=== PATIENT | female | born 1955 | race Caucasian/White ===

== ENCOUNTER → 2018-07-28 | Outpatient (CLI) | payer MEDICARE ==
[~2018-07-28] MED LIST: AMPH20TA2 PO; ASP81CT PO; CHOL10003 PO; CLON0.5T3 PO; CLON1TAB36; CTLP20T PO; CYCL10TA9 PO; DIAZ10TA PO; DIAZ5TAB49; ESCT10T; EST.625T PO; EZET10TA5 PO; GABA300C PO; HYDR1TAB86 PO; LAMO100T69 PO; MIRT30TA6 PO; MRTZ15T; MULT1TAB63 PO; OLN2.5T; OMG1KC PO; PHN100C; PRM50SU PO; PROP20TA23; RSP.25T PO; RT-COMBINH IH; SMV20T PO
--- NOTE | 2018-07-28 12:55 | Diagnostic Imaging Report ---
INDICATION: Multiple falls in the last 2 weeks with pain on the lateral posterior aspect of the left knee. Time of exam 1:03 PM 3 views of the left knee were obtained. The alignment is normal. The joint spaces are well maintained. The articular surfaces are smooth. No fracture, dislocation or effusion is identified. IMPRESSION: No acute bony abnormality is detected. Dictated by: Dictated on workstation # [id number]
--- NOTE | 2018-07-28 15:17 | Diagnostic Imaging Report ---
PROCEDURE: US left lower extremity venous. TECHNIQUE: Multiple real-time grayscale images were obtained over the left lower extremity in various projections. Additional duplex Doppler and color Doppler images were also obtained. INDICATION: Left knee injury and left knee pain with unilateral left lower extremity swelling. There is no evidence of a left lower extremity DVT. The left lower extremity deep venous system shows normal compressibility with normal response to augmentation and Valsalva. No fluid collection or mass is seen. IMPRESSION: No evidence of left lower extremity DVT. Dictated by: Dictated on workstation # [id number]
== END ==
LOC: RAD 11:38
PROVIDERS: ATTEND Registered Nurse
DX: S89.92XA Unspecified injury of left lower leg, initial encounter (principal); W19.XXXA Unspecified fall, initial encounter
CPT/HCPCS: 73562

== ENCOUNTER → 2018-08-11 | Outpatient (CLI) | payer MEDICARE ==
--- NOTE | 2018-08-11 14:58 | Diagnostic Imaging Report ---
PROCEDURE: MRI left joint lower extremity without contrast. TECHNIQUE: Multiplanar, multisequence MR imaging of the left knee was performed without contrast. COMPARISON: Left knee radiographs of 07/28/2018. INDICATION: Knee pain after fall. FINDINGS: MENISCI Medial meniscus: Normal. Lateral meniscus: Normal. LIGAMENTS ACL: Intact. PCL: Intact. MCL: Intact. LCL: The lateral collateral ligamentous complex is intact. EXTENSOR MECHANISM The extensor mechanism is intact. CARTILAGE Medial compartment: Medial compartment articular cartilage is well preserved without focal high-grade chondromalacia. Lateral compartment: The lateral compartment articular cartilage is preserved without high-grade chondromalacia. Patellofemoral compartment: The patellofemoral articular cartilage is well preserved without high-grade chondromalacia. BONE There is a small rounded amorphous focus of bone marrow edema in the anterior aspect of the tibia just above the anterior tibial tuberosity. No macroscopic fracture line is present. SOFT TISSUE No knee effusion or Hanks's cyst. Subcutaneous T2 hyperintense edema-like signal in the prepatellar region. IMPRESSION: 1. No acute internal derangement. Specifically, there is no tear of the menisci, cruciate ligaments or collateral ligaments. 2. Small focus of bone contusion in the anterior aspect of the mid tibia just above the anterior tibial tuberosity. 3. Prepatellar subcutaneous edema and/or contusion. Dictated by: Dictated on workstation # [id number]
== END ==
LOC: RAD 13:02
PROVIDERS: ATTEND Nurse Practitioner
DX: S80.12XA Contusion of left lower leg, initial encounter (principal); W19.XXXA Unspecified fall, initial encounter
CPT/HCPCS: 73721

== ENCOUNTER → 2021-01-06 | Outpatient (CLI) | payer MEDICARE ==
--- NOTE | 2021-01-06 11:58 | Diagnostic Imaging Report ---
INDICATION: Postmenopausal. COMPARISON: None FINDINGS: The bone mineral density of hips and spine and femoral necks was measured. There are no prior studies for comparison. Total T score for the spine is -3.0. This does indicate osteoporosis. The total T score for the left hip is -1.5 and for the right hip -1.6. The T score for the left femoral neck is -2.2 and for the right femoral neck -1.7. All of these values fall within the range of osteopenia. AP Spine L1-L4: [BMD (g/cm2): 0.845] [T-Score: -3.0] [Z-Score: -1.5] [BMD Previous: na] [BMD % Change: na] LT Hip Neck: [BMD (g/cm2): 0.736] [T-Score: -2.2] [Z-Score: -0.8] LT Hip Total: [BMD (g/cm2):0.815] [T-Score:-1.5] [Z-Score: -0.4] [BMD Previous: na] [BMD % Change: na] RT Hip Neck: [BMD (g/cm2):0.804] [T-Score:-1.7] [Z-Score:-0.3] RT Hip Total: [BMD (g/cm2):0.810] [T-score:-1.6] [Z-Score:-0.5] [BMD Previous:na] [BMD % Change:na] *Indicates significant change from prior examination based on 95% confidence level. World Health Organization criteria for BMD interpretation classify patients as Normal (T-score at or above -1.0), Osteopenic (T-score between -1.0 and -2.5) or Osteoporotic (T-score at or below -2.5). LIMITATIONS AND MODIFICATION: None. FRACTURE RISK (FRAX SCORE): The ten year probability of (%): Major Osteoporotic Fracture: [11.9] Hip Fracture: [3.1] IMPRESSION: 1. There is osteopenia of the hips and femoral necks but there is osteoporosis of the spine. 2. 3. See below National Osteoporosis Foundation guidelines on when to potentially initiate pharmacologic therapy. Based on the National Osteoporosis Foundation Guidelines, pharmacologic treatment should be initiated in any of the following, unless clinical conditions suggest otherwise: * Any patient with prior fragility fracture of the hip or vertebrae. A spine fracture indicates 5X risk for subsequent spine fracture and 2X risk for subsequent hip fracture. * Osteoporosis (T-score <-2.5). * Postmenopausal women and men age 50 and older with low bone mass/osteopenia (T-score between -1.0 and -2.5) by DXA and 10-year major osteoporotic fracture greater than 20% or a 10-year probability of hip fracture greater than 3%. These fracture risks are supplied above in the FRAX score, if applicable. * Clinician judgement and/or patient preferences may indicate treatment for people with 10-year fracture probabilities above or below these levels. Dictated by: Dictated on workstation # [id number]
== END ==
LOC: RAD 09:39
PROVIDERS: ATTEND Pediatrics
DX: M81.0 Age-related osteoporosis without current pathological fracture (principal); Z78.0 Asymptomatic menopausal state
CPT/HCPCS: 77080

== ENCOUNTER → 2021-01-16 | Outpatient (CLI) | payer MEDICARE ==
--- NOTE | 2021-01-16 09:18 | Diagnostic Imaging Report ---
INDICATION: Routine screening. No prior mammograms are available for comparison. 2-D and 3-D bilateral screening mammography was performed with CAD. Both breasts are heterogeneously dense, limiting the sensitivity of mammography. No mass or malignant appearing microcalcifications are seen. Axillae are unremarkable. IMPRESSION: BI-RADS Category 1 No mammographic features suspicious for malignancy are identified. ACR BI-RADS Category 1: Negative. Result letter will be mailed to the patient. Note: At least 10% of breast cancer is not imaged by mammography. Dictated by: Dictated on workstation # [id number]
== END ==
LOC: RAD 08:30
PROVIDERS: ATTEND Pediatrics
DX: Z12.31 Encounter for screening mammogram for malignant neoplasm of breast (principal)
CPT/HCPCS: 77063; 77067

== ENCOUNTER 2022-04-04 00:29 | Emergency (ER) | payer MEDICARE ==
[~2022-04-04] VITALS: Ht 160 cm; Wt 59.4 kg
--- NOTE | 2022-04-04 01:41 | ED General ---
General Stated Complaint: PAIN,BRUISING,SWELLING Source of Information: Patient History of Present Illness Date Seen by Provider: Apr 04, 2022 Time Seen by Provider: 01:32 Initial Comments PT ARRIVES VIA POV FROM HOME PT FELL LAST Tuesday04/01/22 STATES SHE STOOD UP AND GOT DIZZY AND FELL AGAINST THE WASHER AND THEN FELL BACKWARDS AND LANDED ON HER BACK HAS HAD BILATERAL HIP PAIN AND LOW BACK PAIN SINCE THEN DID NOT HIT HER HEAD AT THAT TIME, AND NO NECK PAIN NO DIZZINESS SINCE THEN HAS MINOR ABRASION TO RIGHT MCNEIL FROM THAT INCIDENT. NO PAIN TO THAT AREA DID NOT SEEK CARE AT ANY TIME FOR THAT PROBLEM HAS NOT TAKEN ANYTHING FOR PAIN AT ANY TIME THOSE SYMPTOMS ARE NO DIFFERENT TONIGHT IN ANY WAY STATES SHE WAS ON HER WAY TO COME TO THE ER TONIGHT FOR THE ABOVE INJURY AND SHE WAS WALKING DOWN THE STEPS AND MISSED THE LAST STEP AND FELL FORWARD AND HIT HER FOREHEAD ON CONCRETE AND THEN SOMEHOW ENDED UP ON HER BACK OCCURRED AROUND MIDNIGHT TONIGHT C/O PAIN TO FOREHEAD, BUT NOT AN ACTUAL HEADACHE DID NOT BREAK HER GLASSES NO NECK PAIN NO VISION CHANGES NO DIZZINESS NO NAUSEA/VOMITING NO PARESTHESIAS OR MOTOR DEFICITS NO CHEST OR ABDOMINAL PAIN OR INJURY NO SHORTNESS OF BREATH. NO ARM OR LEG PAIN, OTHER THAN THE BILATERAL HIP PAIN FROM THE ABOVE INJURY. HAS MINOR ABRASIONS TO LEFT ELBOW AND LEFT KNEE. NO PAIN TO THOSE AREAS. NO PRIOR INJURIES TO HEAD, NECK, BACK, OR HIPS. STATES SHE HAS NOT HAD ANY BONE/JOINT PROBLEMS OR CHRONIC PAIN ISSUES HOWEVER, PER MED RECONCILIATION, PT PRESCRIBED CYCLOBENZAPRINE AND ULTRAM MONTHLY PT IS ALSO ON A MULTITUDE OF PSYCH MEDICATIONS AND OTHER SEDATING MEDICATIONS LAST TETANUS VACCINE IS UNKNOWN PT IS NOT ON ASPIRIN OR BLOOD THINNERS PCP: [facility] Allergies and Home Medications Allergies Coded Allergies: Codeine (Verified Allergy, Unknown, 01/13/06) Prochlorperazine (Verified Allergy, Unknown, 01/13/06) sumatriptan (Verified Allergy, Unknown, 01/14/06) Patient Home Medication List Aspirin (Aspirin 81 Mg Chew Tab) 81 Mg Chew, 81 MG PO HS, (Reported) Entered as Reported by: BLAKE PAGE on 04/05/11 1830 Cholecalciferol (Vitamin D) 1,000 Unit Tablet, 1,000 UNIT PO DAILY, (Reported) Entered as Reported by: BLAKE PAGE on 04/05/111829 Citalopram Hydrobromide (Celexa) 20 Mg Tablet, 20 MG PO DAILY, (Reported) Entered as Reported by: BLAKE PAGE on 04/05/111829 Clonazepam (Clonazepam 0.5 Mg) 0.5 Mg Tablet, 0.5 MG PO HS, (Reported) Entered as Reported by: BLAKE PAGE on 04/05/111829 Cyclobenzaprine Hcl (Cyclobenzaprine Hcl) 10 Mg Tablet, 10 MG PO Q8HR PRN, (Reported) Entered as Reported by: BLAKE PAGE on 04/05/111829 Diazepam (Valium) 10 Mg Tablet, 10 MG PO PRN, (Reported) Entered as Reported by: BLAKE PAGE on 04/05/111829 Estrogens,Conjugated (Premarin) 0.625 Mg Tablet, 0.625 MG PO DAILY, (Reported) Entered as Reported by: QUYEN DIEZ on 12/16/0630 Ezetimibe (Zetia) 10 Mg Tablet, 10 MG PO HS, (Reported) Entered as Reported by: BLAKE PAGE on 04/05/111829 Gabapentin (Neurontin) 300 Mg Capsule, 300 MG PO HS, (Reported) Entered as Reported by: BLAKE PAGE on 04/05/111829 Ipratropium/Albuterol Sulfate (Combivent Inhaler) 14.7 Gm Aer.w.adap, 2 PUFF IH Q6H PRN, (Reported) Entered as Reported by: KAREY LUJAN on 04/07/11936 Lamotrigine (Lamictal) 100 Mg Tablet, 100 MG PO BID, (Reported) Entered as Reported by: BLAKE PAGE on 04/05/111829 Mirtazapine (Mirtazapine 30 Mg) 30 Mg Tablet, 30 MG PO HS, (Reported) Entered as Reported by: BLAKE PAGE on 04/05/111829 Multivitamins (Vitamins (Multi-Vit)) 1 Ea Tablet, 1 TAB PO DAILY, (Reported) Entered as Reported by: QUYEN DIEZ on 12/16/0627 [place] [employer] 3 Polyunsat Fatty Acids (Fish Oil) 1,000 Mg Cap, 1,000 MG PO DAILY, (Reported) Entered as Reported by: BLAKE PAGE on 04/05/111829 Promethazine Hcl (Phenergan) 50 Mg Supp.rect, 50 MG PO Q6H PRN, (Reported) Entered as Reported by: BLAKE PAGE on 04/05/111829 Risperidone (Risperdal) 0.25 Mg Tablet, 0.25 MG PO HS, (Reported) Entered as Reported by: QUYEN DIEZ on 12/16/06 0031 Review of Systems Review of Systems Constitutional: no symptoms reported EENTM: see HPI Respiratory: no symptoms reported Cardiovascular: no symptoms reported Gastrointestinal: no symptoms reported Genitourinary: no symptoms reported Musculoskeletal: see HPI Skin: see HPI Psychiatric/Neurological: See HPI; Denies Numbness, Denies Paresthesia, Denies Seizure, Denies Tingling, Denies Tremors, Denies Weakness Hematologic/Lymphatic: No Symptoms Reported Immunological/Allergic: no symptoms reported Past Mbttprm-Zipxwg-Gocbcx Hx Patient Social History Tobacco Use?: Yes Tobacco type used: Cigarettes Smoking Status: Current Everyday Smoker Substance use?: Yes Substance type: Marijuana Past Medical History Surgeries: Yes Appendectomy, Gallbladder, Hysterectomy Respiratory: Yes Asthma, COPD Cardiac: Yes Hypertension Neurological: Yes (PSEUDOSEIZURES) Reproductive Disorders: Yes Female 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 -ETOH--DENIES USE -DRUGS--THC USE PAST SURGICAL HISTORY: -HYSTERECTOMY/BILATERAL SALPINGO-OOPHORECTOMY -LAPAROSCOPIC CHOLECYSTECTOMY -SMALL BOWEL RESECTION -LYSIS OF ADHESIONS -LIVER BIOPSY -RIGHT ELBOW ULNAR NERVE TRANSPOSITION WITH MEDIAL EPICONDYLE RELEASE -RIGHT ELBOW TENNIS ELBOW RELEASE -RIGHT SHOULDER SCOPES X 2 -SINUS SURGERY -ERCP WITH GALLSTONE REMOVAL AND SPHINCTEROTOMY -MULTIPLE LEFT HAND SURGERIES SECONDARY TO TRAUMA. Physical Exam Vital Signs Vital Signs - First Documented 04/04/22 01:43 Temp 36.8 Pulse 80 Resp 20 B/P (MAP) 137/91 (106) Pulse Ox 96 O2 Delivery Room Air Capillary Refill : Height, Weight, BMI Height: '" Weight: lbs. oz. kg; BMI Method: General Appearance: No Apparent Distress, WD/WN, Other (MOVES VERY SLOWLY) HEENT: PERRL/EOMI Neck: Full Range of Motion, Normal Inspection, Non Tender, Supple Respiratory: Chest Non Tender, Normal Breath Sounds, No Accessory Muscle Use, No Respiratory Distress Cardiovascular: Regular Rate, Rhythm, No Edema, No JVD, No Murmur, Normal Peripheral Pulses Gastrointestinal: Normal Bowel Sounds, No Organomegaly, No Pulsatile Mass, Non Tender, Soft Back: Other (DIFFUSE LOWER BACK TENDERNESS) Extremity: Normal Capillary Refill, No Calf Tenderness, No Pedal Edema, Other (BILATERAL HIP TENDERNESS. MINOR ABRASIONS TO LEFT ELBOW AND LEFT KNEE. OLDER/SCABBED ABRASION TO RIGHT MCNEIL. 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 ) Progress/Results/Core Measures Suspected Sepsis SIRS Temperature: Pulse: Respiratory Rate: Blood Pressure / Mean: Results/Orders My Orders Orders - SHELIA NEWELL DO Ct Head/Face/Cervical Wo (04/04/22 02:12) Ct Thoracic/Lumbar Spine Wo (04/04/22 02:12) Chest 1 View, Ap/Pa Only (04/04/22 02:12) Pelvis/Sav Hips 5> Views (04/04/22 02:12) Dipht,Pertuss(Acell),Tet Adult (Boostrix (04/04/22 02:15) Ketorolac Injection (Toradol Injection) (04/04/22 05:30) Orphenadrine Inj (Ed Only) (Norflex Inje (04/04/22 05:30) Medications Given in ED Current Medications Medications Dose Ordered Sig/Kavitha Route Start Time Stop Time Status Last Admin Dose Admin Diphtheria/ Tetanus/Acell Pertussis 0.5 ml ONCE ONCE IM 04/04/22 02:15 04/04/22 02:16 DC 04/04/22 02:31 0.5 ML Vital Signs/I&O 04/04/22 01:43 Temp 36.8 Pulse 80 Resp 20 B/P (MAP) 137/91 (106) Pulse Ox 96 O2 Delivery Room Air Capillary Refill : Progress Note : Progress Note NO DETERIORATION IN PT'S CONDITION DURING ER STAY MARKED DELAY IN OBTAINING CT AND THEN CT REPORTS. Diagnostic Imaging Comments CXR--NO ACUTE PROCESS, PENDING RADIOLOIGIST REVIEW PELVIS/BILATERAL HIPS--NO ACUTE PROCESS, PENDING RADIOLOGIST REVIEW CT HEAD/CERVICAL SPINE-- CT THORACIC/LUMBAR SPINE-- Reviewed: Reviewed by Me Departure Impression Primary Impression: Multiple falls Additional Impressions: Minor head injury without loss of consciousness Exacerbation of chronic back pain AGE INDETERMINATE T11 COMPRESSION FRACTURE Abrasions of multiple sites DEGENERATIVE CHAGES OF SPINE Disposition: HOME, SELF-CARE Condition: Stable Departure-Patient Inst. Decision time for Depature: 05:20 Referrals: [facility] [place] [facility] [place] Primary Care Physician REBECCA BROCK MD (Family) Primary Care Physician Patient Instructions: CHRONIC PAIN, Minor Head Injury, Adult ED, Preventing Falls ED, Vertebral Compression Fracture (DC) Add. Discharge Instructions: TAKE YOUR HOME MEDICATIONS PRESCRIBED, INCLUDING YOUR ULTRAM AND FLEXERIL FOR YOUR CHRONIC BACK PAIN IBUPROFEN 800 MG 4 TIMES A DAY FOR PAIN FOLLOW UP WITH YOUR DR IN 5-7 DAYS FOR FURTHER CARE SHELIA NEWELL DO Apr 04, 2022 01:41
[2022-04-04] MEDS ORDERED: TETANUS,DIPTH,PERTUSS P/F (BOOSTRIX) 0.5 ML VIAL IM ONE (02:15)
[2022-04-04] MEDS ORDERED: KETOROLAC 60 MG/2 ML VIAL IM ONE (05:30)
[2022-04-04] MEDS ORDERED: ORPHENADRINE 60 MG/2 ML (NORFLEX) AMP (ED ONLY) IM ONE (05:30)
[2022-04-04 05:39] VITALS: BP 123/73
--- NOTE | 2022-04-04 06:09 | Diagnostic Imaging Report ---
PROCEDURE: CT thoracic and lumbar spine without contrast. TECHNIQUE: Multiple contiguous axial images were obtained through the thoracic and lumbar spine without the use of intravenous contrast. Sagittal and coronal reformations were then performed. All CT scans use one or more of the following dose optimizing techniques: automated exposure control, MA and/or KvP adjustment based on a patient size and exam type, or iterative reconstruction. INDICATION: Back pain from trauma. COMPARISON: None available. FINDINGS: Thoracic spine: Normal kyphosis thoracic spine. There is a chronic Schmorl's node involving the superior endplate of T11. No acute fracture within the thoracic spine. The visualized posterior ribs are intact. No paravertebral hematoma. There is a small amount of dependent atelectasis within the visualized lungs. Lumbar spine: No acute fracture or traumatic malalignment. Degenerative disc disease is present at L4-L5 and L5-S1, but there is no high-grade spinal canal stenosis. No sacral fracture. There are few punctate nonobstructing renal stones. SI joints are normal in alignment. IMPRESSION: 1. No acute fracture in the thoracic or lumbar spine. 2. The superior endplate compression at T11 is due to a chronic Schmorl's node. 3. No significant change from preliminary report that would alter patient management. Dictated by: Dictated on workstation # [id number]
--- NOTE | 2022-04-04 06:12 | Diagnostic Imaging Report ---
PROCEDURE: CT head, face, and cervical spine without contrast. TECHNIQUE: Multiple contiguous axial images were obtained through the head, neck, and facial bones without the use of intravenous contrast. Sagittal and coronal reformations through the cervical spine and facial bones were also performed. Auto Exposure Controls were utilized during the CT exam to meet ALARA standards for radiation dose reduction. INDICATION: Head, face and back injury, trauma from fall. COMPARISON: None available. FINDINGS: Head: No intracranial hyperdense hemorrhage or space-occupying mass. No hydrocephalus or midline shift. Angulo-white matter differentiation is well-preserved. Basilar cisterns are widely patent. No skull fracture. Paranasal sinuses are clear with prior surgical changes of antrectomy and ethmoidectomies. Mastoid air cells are clear. Face: There is no acute fracture in the nasal bones, osseous nasal septum or anterior nasal spine. The orbits are intact. No fracture in the zygomatic arches or maxillary sinus white. Pterygoid plates are intact. The temporomandibular joints are normal in alignment. No acute mandibular fracture. Patient is edentulous. The globes are symmetric without traumatic lens dislocation. No intraconal hemorrhage. Cervical spine: Normal alignment of the cervical spine. No acute fracture or traumatic malalignment. No high-grade spinal canal stenosis. Airway is widely patent and there is no abnormal wall thickening. Thyroid is normal. Lung apices are clear. IMPRESSION: 1. No acute intracranial hemorrhage or skull fracture. 2. No fracture of the midface or mandible. 3. No fracture or malalignment in the cervical spine. 4. Findings are in agreement with the preliminary report. Dictated by: Dictated on workstation # [id number]
--- NOTE | 2022-04-04 06:45 | Diagnostic Imaging Report ---
INDICATION: Fall. TECHNIQUE: An AP pelvis and two-views of the bilateral hips were performed. FINDINGS: No displacement of the midline air containing rectal shadow. No symphyseal or SI joint diastasis. The femoral heads are directed into the acetabula. There are arthritic changes to the bilateral hips. No fracture or articular collapse. No bony avulsion. IMPRESSION: No acute or post traumatic sequelae identified at AP pelvis and two-view bilateral hips. Dictated by: Dictated on workstation # [id number]
--- NOTE | 2022-04-04 06:46 | Diagnostic Imaging Report ---
INDICATION: Fall, pain. FINDINGS: The lungs are clear. No effusion or pneumothorax. The cardiomediastinal and hilar contours are normal. The diaphragms are smooth. No free air beneath the diaphragms. No displaced chest fracture deformity. IMPRESSION: No acute appearing abnormality. Dictated by: Dictated on workstation # [id number]
== END 2022-04-04 05:38 | disposition home or self-care (01) ==
LOC: EDUNIT# 00:29 → ER 00:33
DX: S22.089A Unspecified fracture of T11-T12 vertebra, initial encounter for closed fracture (principal); S50.312A Abrasion of left elbow, initial encounter; S80.212A Abrasion, left knee, initial encounter; S80.811A Abrasion, right lower leg, initial encounter; S09.90XA Unspecified injury of head, initial encounter; M47.819 Spondylosis without myelopathy or radiculopathy, site unspecified; M25.552 Pain in left hip; M25.551 Pain in right hip; F17.210 Nicotine dependence, cigarettes, uncomplicated; W18.30XA Fall on same level, unspecified, initial encounter
CPT/HCPCS: 70450; 70486; 71045; 72125; 72128; 72131; 73523; 90715

== ENCOUNTER 2022-11-16 10:54 | Day surgery (SDC) | payer MEDICARE, OTHER ==
[~2022-11-16] VITALS: Ht 160 cm; Wt 71.4 kg
[2022-11-16] VITALS (12 sets, daily range): BP systolic 94–132; BP diastolic 52–81
[2022-11-16] MEDS ORDERED: NS IV 1000 ML 1,000 ML IV SCH ×2 (11:00→13:15)
[2022-11-16] MEDS ORDERED: LIDOCAINE 1% INJ 20 ML VIAL ONE (11:05)
[2022-11-16] MEDS ORDERED: HEParin (CATH LAB) 2,000 ML IV ONE (11:05)
[2022-11-16] MEDS ORDERED: NS IV 1000 ML 1,000 ML ONE (11:05)
[2022-11-16 11:47] LABS: HEMATOCRIT 41 % (35-52); HEMOGLOBIN 13.4 g/dL (11.5-16.0); MEAN CORPUSCULAR HEMOGLOBIN 30 pg (25-34); MEAN CORPUSCULAR HGB CONC 33 g/dL (32-36); MEAN CORPUSCULAR VOLUME 93 fL (80-99); MEAN PLATELET VOLUME 10.4 fL (9.0-12.2); PLATELET COUNT 273 10^3/uL (130-400); WHITE BLOOD COUNT 5.5 10^3/uL (4.3-11.0)
[2022-11-16] MEDS ORDERED: FLUO40CA12 PO (12:01)
[2022-11-16] MEDS ORDERED: MTP25TSR PO (12:02)
[2022-11-16 12:03] LABS: PROTHROMBIN TIME PATIENT 13.5 SEC (12.2-14.7)
[2022-11-16] MEDS ORDERED: TRAZ-227 PO (12:03)
[2022-11-16] MEDS ORDERED: ARIP5TAB12 PO (12:04)
[2022-11-16] MEDS ORDERED: PRAZ1POW3 MC (12:05)
[2022-11-16] MEDS ORDERED: GBPN600T PO (12:07)
[2022-11-16] MEDS ORDERED: TRM50T PO (12:08)
[2022-11-16] MEDS ORDERED: ROSU40TA PO (12:10)
[2022-11-16 12:11] LABS: ALBUMIN 4.1 GM/DL (3.2-4.5); BILIRUBIN,TOTAL 0.6 MG/DL (0.1-1.0); CALCIUM 9.4 MG/DL (8.5-10.1); CREATININE SERUM 0.76 MG/DL (0.60-1.30); POTASSIUM 3.7 MMOL/L (3.6-5.0); TOTAL PROTEIN 7.3 GM/DL (6.4-8.2)
[2022-11-16] MEDS ORDERED: ALEN70TA80 PO (12:12)
[2022-11-16] MEDS ORDERED: fentaNYL INJ 100 MCG/2 ML AMP ONE (12:19)
[2022-11-16] MEDS ORDERED: MIDAZOLAM 5 MG/5 ML (VERSED) VIAL ONE (12:20)
--- NOTE | 2022-11-16 13:13 | Cardiac Procedure Note-CS/ASA ---
Pre-Procedure Note Pre-Op Procedure Note Date of Available H&P: Nov 15, 2022 Date H&P Reviewed: Nov 16, 2022 Time H&P Reviewed: 12:00 History & Physical: H&P Reviewed, No changes noted Conscious Sedation Pre-Proced ASA Score 3 For ASA 3 and 4: Consider anesthesia and medical clearance. Also, for patients with a history of failed moderate sedation consider anesthesia. Airway Lungs Heart ASA score ASA 1: a normal healthy patient ASA 2: a patient with a mild systemic disease (mid diabetes, controlled hypertension, obesity ASA 3: a patient with a severe systemic disease that limits activity (angina, COPD, prior Myocardial infarction) ASA 4: a patient with an incapacitating disease that is a constant threat to life (CHF, renal failure) ASA 5: a moribund patient not expected to survive 24 hrs. (ruptured aneurysm) ASA 6: a declared brain- patient whose organs are being harvested. For emergent operations, add the letter E after the classification Mallampati Classification Grade 2 Sedation Plan Analgesia, Amnesia, Plan communicated to team members The patient is an appropriate candidate to undergo the planned procedure, sedation, and anesthesia. The patient immediately re-assessed prior to indication. UMBERTO ACUNA MD FACP [facility] Nov 16, 2022 13:13
[2022-11-16] MEDS ORDERED: PATIENT MAY USE OWN MEDS, ALL PO SCH (13:15)
--- NOTE | 2022-11-16 13:17 | Discharge Inst-Post CATH ---
Discharge Inst-CATH/EP Post Cardiac Cath/EP D/C Inst Follow Up/Plan F/u with Dr Beasley in one month ACTIVITY * Go Home directly and rest. * Limit activity of the leg (or wrist if it was used) for 7 days including aerobics, swimming, jogging, bicycling, etc. * Restrict stair-climbing for 7 days if possible, if not, climb up with your non-cath leg, then bring together on the same step. * Avoid lifting, pushing, pulling or excessive movement of the affected e xtremity for 7 days. * Customary sexual activity may be resumed after 2 days-use caution not to use a position that strains or causes pain to the affected extremity. * No driving for 24 hours. * NO SMOKING. * Avoid straining for bowel movements for 7 days. * Gentle walking on level ground is allowed. * Returning to work will depend on the type of procedure and the results. Your doctor will discuss this with you. CALL YOUR DOCTOR FOR ANY OF THE FOLLOWING: *If bleeding from the puncture site occurs- Apply gentle pressure to site with clean cloth and call your doctor or EMS. * If a knot or lump forms under the skin, increases in size, or causes pain. * If bruising appears to be worsening or moving further down your leg instead of disappearing. * Temperature above 101 F. CARE OF YOUR GROIN INCISION; * Bruising or purple discoloration of the skin near the puncture site is common. * You may shower only, no bathtub bathing for 5 days. Be careful to avoid slipping as your leg may feel stiff. * If a closure device was used on your femoral artery, please see the attached guide regarding care of the device and your leg. * Leave dressing on FOR 24 hours. CARE OF YOUR WRIST INCISION; * Bruising or purple discoloration of the skin near the puncture site is common. * You may shower. * DO NOT submerge wrist. * Leave dressing on FOR 24 hours. UMBERTO BEASLEY MD FACP [facility] Nov 16, 2022 13:17
--- NOTE | 2022-11-16 13:17 | Discharge Inst-Cardiology ---
Discharge Inst-Cardiac Discharge Medications Continued Medications: Alendronate Sodium (Alendronate Sodium) 70 Mg Tablet 70 MG PO WEEK, TAB Aripiprazole (Abilify) 5 Mg Tablet 5 MG PO DAILY, TAB Aspirin (Aspirin 81 Mg Chew Tab) 81 Mg Chew 81 MG PO HS Cholecalciferol (Vitamin D) 1,000 Unit Tablet 1000 UNIT PO DAILY Fluoxetine HCl (Prozac) 40 Mg Capsule 40 MG PO BID, CAP Gabapentin (Gabapentin) 600 Mg Tablet 600 MG PO TID, TAB Ipratropium/Albuterol Sulfate (Combivent Inhaler) 14.7 Gm Aer.w.adap 2 PUFF IH Q6H PRN Lamotrigine (Lamictal) 100 Mg Tablet 100 MG PO BID Metoprolol Succinate (Metoprolol Succinate) 25 Mg Tab.er.24h 25 MG PO DAILY, TAB Multivitamins (Vitamins (Multi-Vit)) 1 Ea Tablet 1 TAB PO DAILY, 0 Refills Prazosin HCl (Prazosin HCl) 1 Gm Powder 1 GM MC HS, EA Rosuvastatin Calcium (Crestor) 40 Mg Tablet 40 MG PO DAILY, TAB Tramadol HCl (Tramadol HCl) 50 Mg Tablet 50 MG PO BID PRN PRN for PAIN-BREAKTHROUGH, TAB Trazodone HCl (Trazodone HCl) 100 Mg Tablet 200 MG PO HS, TAB UMBERTO ACUNA MD FACP [facility] Nov 16, 2022 13:17
--- NOTE | 2022-11-16 16:49 | CARDIAC CATHETERIZATION ---
DATE OF SERVICE: 11/16/2022 CARDIAC CATHETERIZATION REPORT The patient is a 67-year-old lady with coronary artery disease. Risk factors, he has been experiencing chest discomfort that is suggestive of new onset of angina. Cardiac catheterization was carried out today after having obtained an informed consent. DESCRIPTION OF PROCEDURE: She was brought to the cardiac catheterization laboratory in a fasting state. Right groin was prepared and draped in the usual sterile fashion. 1% lidocaine was used for local anesthesia. Modified Seldinger technique was used to advance a 5-Salvadorean sheath into the right femoral artery, 5-Salvadorean JL4 catheter, left coronary angiography, 5-Salvadorean JR4 catheter was used for right coronary angiography, 5-Salvadorean pigtail catheter was used for left heart catheterization, left ventricular angiography. The catheter was pulled back and removed. Angiography of the right femoral artery was carried out through the sheath. The site of sheath insertion did not appear suitable for device closure. Manual pressure was used to achieve hemostasis after sheath removal. HEMODYNAMICS: Left ventricular end diastolic pressure, following coronary angiography was 15 mmHg. There is no significant pressure gradient on pullback across the aortic valve. Ascending aortic pressure is 103/59 with a mean of 78 mmHg. CORONARY ANGIOGRAPHY: Left main coronary artery is free of significant disease. Left anterior descending artery has mild plaques with stenosis of 20-30% throughout its course. Left circumflex artery is nondominant and does not exhibit significant disease. Right coronary artery is dominant and does not exhibit significant disease. LEFT VENTRICULAR ANGIOGRAPHY: Left ventricular angiography was carried out in the right anterior oblique projection. Global left ventricular systolic function normal. No regional wall motion abnormality was seen. Left ventricular ejection fraction is estimated to be 55-60% conclusions. CONCLUSION: 1. Mild coronary artery disease. 2. Normal global left ventricular systolic function with ejection fraction approximately 55-60%. 3. Left ventricular end-diastolic pressure 15 mmHg. DISCUSSION AND RECOMMENDATIONS: Based on the results of the study, it appears appropriate to continue a conservative approach. Current regimen is being continued. Risk factor modification is advised. Outpatient followup is advised. Job ID: [id number] DocumentID: [id number] Dictated Date: 11/16/2022 13:26:23 Vb Net Developer Date: 11/16/2022 16:47:00 Dictated By: UMBERTO ACUNA MD; MA; FACP; FACC;
[2022-11-16] MEDS ORDERED: oxyCODONE/APAP 5/325MG (PERCOCET 5) TABLET PO NR (19:00)
[2022-11-16] MEDS: NS IV 1000 ML 1,000 ML IV SCH (19:47)
[2022-11-17] MEDS: NS IV 1000 ML 1,000 ML IV SCH ×2 (02:47→09:38)
[2022-11-17 03:50] VITALS: BP 96/53
[2022-11-17 04:00] VITALS: BP 101/60
--- NOTE | 2022-11-17 07:52 | Progress Note - Cardiology ---
Cardiology SOAP Progress Note Subjective: Lying in bed C/O gen discomfort C/O dizziness which is unchanged from prior to cardiac cath. She states this has been going on for months and is no different. She reports she took her home medications last night Objective: I&O/Vital Signs 11/16/22 11/17/22 11/17/22 11/17/22 23:42 01:00 03:50 04:00 Temp 36.4 36.2 Pulse 58 58 77 59 Resp 13 23 26 B/P (MAP) 94/54 (67) 96/53 (67) 101/60 (74) Pulse Ox 94 97 97 O2 Delivery Room Air Room Air Room Air 11/17/22 11/17/22 11/17/22 06:58 06:58 07:56 Temp 36.2 Pulse 60 60 62 Resp 17 B/P (MAP) 110/59 (76) Pulse Ox 97 O2 Delivery Room Air 11/17/22 00:00 Intake Total 1266 ml Output Total 0 ml Balance 1266 ml Side: right Groin site without hematoma: Yes Condition: DP/PT pulses palpable, extremity w/d/p Bruising: moderated bruising Constitutional: AAO x 3, well-developed Respiratory: No accessory muscle use, No respiratory distress; chest expansion is symmetric, chest is bilaterally symmetric, lungs clear to auscultation Cardiovascular: regular rate-rhythm; No JVD; S1 and S2 Gastrointestional: No tender; soft, round, audible bowel sounds Neurologic/Psychiatric: grossly intact (moves all extremities) Skin: No rash on exposed areas, No ulcerations on exposed areas Results/Procedures: Labs Laboratory Tests 11/16/22 11:37: White Blood Count 5.5, Red Blood Count 4.45, Hemoglobin 13.4, Hematocrit 41, Mean Corpuscular Volume 93, Mean Corpuscular Hemoglobin 30, Mean Corpuscular Hemoglobin Concent 33, Red Cell Distribution Width 13.3, Platelet Count 273, Mean Platelet Volume 10.4, Prothrombin Time 13.5, INR Comment 1.0, Activated Partial Thromboplast Time 27, Sodium Level 142, Potassium Level 3.7, Chloride Level 106, Carbon Dioxide Level 25, Anion Gap 11, Blood Urea Nitrogen 10, Creatinine 0.76, Estimat Glomerular Filtration Rate 87, BUN/Creatinine Ratio 13, Glucose Level 112H, Calcium Level 9.4, Corrected Calcium 9.3, Total Bilirubin 0.6, Aspartate Amino Transf (AST/SGOT) 634H, Alanine Aminotransferase (ALT/SGPT) 811H, Alkaline Phosphatase 177H, Total Protein 7.3, Albumin 4.1, Triglycerides Level 156H, Cholesterol Level 132, LDL Cholesterol Direct 39, VLDL Cholesterol 31, HDL Cholesterol 50 11/17/22 08:30: White Blood Count 8.1, Red Blood Count 3.55L, Hemoglobin 10.7#L, Hematocrit 33L, Mean Corpuscular Volume 94, Mean Corpuscular Hemoglobin 30, Mean Corpuscular Hemoglobin Concent 32, Red Cell Distribution Width 13.5, Platelet Count 192, Mean Platelet Volume 10.5, Sodium Level 140, Potassium Level 3.7, Chloride Level 112H, Carbon Dioxide Level 20L, Anion Gap 8, Blood Urea Nitrogen 9, Creatinine 0.71, Estimat Glomerular Filtration Rate 94, BUN/Creatinine Ratio 13, Glucose Level 163H, Calcium Level 8.1L, Corrected Calcium 8.7, Total Bilirubin 0.4, Aspartate Amino Transf (AST/SGOT) 170H, Alanine Aminotransferase (ALT/SGPT) 424H , Alkaline Phosphatase 130, Total Protein 5.5L, Albumin 3.2 Microbiology 11/16/22 MRSA Screen - Final, Complete MRSA not isolated Procedures NAME: RAMAN CONSTANTINO [facility] REC#: [id number] PT STATUS: [facility] : 1955 PHYSICIAN: BHUMIKA NUÑEZ MD ADMIT DATE: 11/16/22/[facility] Draft Date of Exam:11/17/22 RIGHT LOW EXT [id number] INDICATION: Status post cardiac catheter in the right groin. Patient complains of right groin pain. Grayscale, color-flow duplex Doppler evaluation of the right groin was performed. No hematoma is seen. No pseudoaneurysm or AV fistula is detected. A right common femoral artery and vein are patent. The proximal superficial femoral artery and vein are patent. IMPRESSION: Unremarkable right groin ultrasound. Dictated on workstation # [id number] Dict: 11/17/22904 Trans: 11/17/22 0927 CV [id number] Interpreted by: PRATEEK BIRD MD Electronically signed by: A/P: Assessment: Non-cardiac dizziness of undetermined etiology Elevated liver enzymes of undetermined etiology CAD - Cardiac cath of 11-16-22: Mild coronary artery disease. Normal global left ventricular systolic function with ejection fraction approximately 55-60%. Left ventricular end-diastolic pressure 15 mmHg. Quit smoking in May 2022 HLD HTN Family h/o premature CAD (mother had [place] at age 60) PTSD Bi-polar disorder Chronic pain syndrome Recent falls due to dizziness (no syncope) Temporal artery biopsy by Dr Messina in [place], [place] on Nov 08, 2022 (results awaited) Plan: C/O gen pain of undetermined etiology and dizziness - right groin arterial doppler shows no evidence of bleed or fistula Chronic dizziness of undetermined etiology - suspect r/t multi-drug tx (Trazadone, Lamictal, Gabapenin, Prozac, Tramadol, Flexeril and Hydrocodone) - will consult medical services for non-cardiac dizziness - somewhat lowis BP - stop Toprol Elevated liver enzymes of undetermined etiology - medical services consulted Monitor lab NADIA GASPAR Nov 17, 2022 07:52
[2022-11-17 07:56] VITALS: BP 110/59
[2022-11-17 08:43] LABS: MEAN CORPUSCULAR HEMOGLOBIN 30 pg (25-34); MEAN CORPUSCULAR HGB CONC 32 g/dL (32-36); MEAN CORPUSCULAR VOLUME 94 fL (80-99); MEAN PLATELET VOLUME 10.5 fL (9.0-12.2); WHITE BLOOD COUNT 8.1 10^3/uL (4.3-11.0)
[2022-11-17 08:49] LABS: HEMATOCRIT 33 % (35-52); HEMOGLOBIN 10.7 g/dL (11.5-16.0); PLATELET COUNT 192 10^3/uL (130-400)
[2022-11-17 08:52] LABS: ALBUMIN 3.2 GM/DL (3.2-4.5)
[2022-11-17 08:53] LABS: POTASSIUM 3.7 MMOL/L (3.6-5.0)
[2022-11-17 08:54] LABS: CALCIUM 8.1 MG/DL (8.5-10.1)
[2022-11-17 08:55] LABS: TOTAL PROTEIN 5.5 GM/DL (6.4-8.2)
[2022-11-17 08:57] LABS: BILIRUBIN,TOTAL 0.4 MG/DL (0.1-1.0)
[2022-11-17 08:59] LABS: CREATININE SERUM 0.71 MG/DL (0.60-1.30)
--- NOTE | 2022-11-17 09:29 | Diagnostic Imaging Report ---
INDICATION: Status post cardiac catheter in the right groin. Patient complains of right groin pain. Grayscale, color-flow duplex Doppler evaluation of the right groin was performed. No hematoma is seen. No pseudoaneurysm or AV fistula is detected. A right common femoral artery and vein are patent. The proximal superficial femoral artery and vein are patent. IMPRESSION: Unremarkable right groin ultrasound. Dictated by: Dictated on workstation # [id number]
--- NOTE | 2022-11-17 10:55 | Consultation - Hospitalist ---
HPI History of Present Illness: HPI/Chief Complaint CC: Dizziness HPI: This is a 67yoWF clinic patient of [facility] who has a h/o mental illness and chronic dizziness who is s/p cardiac cath to evaluate vague chest pain and it was normal. Dr Beasley consulted me for dizziness which was causing a possible delay in DC home. Apparently the dizziness has been present for 1 year and has been helped with Meclizine. Upon review of her labs and other diagnostic report the decision was made to start Meclizine and consult PT to get her up out of bed and give her exercises to use at home and DC home. Source: patient Exam Limitations: no limitations Date Seen 11/17/22 Attending Physician [facility] PCP Admitting Physician: Attending Physician: Jenae Beasley MD Facp Fac Ccds Referring Physician Date of Admission Home Medications & Allergies Home Medications Reviewed patient Home Medication Reconciliation performed by pharmacy medication reconciliations water quality technician and/or nursing. Patients Allergies have been reviewed. Allergies Allergies Coded Allergies codeine (Verified Allergy, Unknown, 01/13/06) prochlorperazine (Verified Allergy, Unknown, 01/13/06) sumatriptan (Verified Allergy, Unknown, 01/14/06) Past Hahiymt-Fhuerc-Ictqsj Hx Patient Social History Marrital Status: single Employed/Student: retired Tobacco Use?: No Smoking Status: Former Smoker Smokeless Tobacco Frequency: Never a User Use of E-Cig and/or Vaping dev: No Substance use?: No Alcohol Use?: No Pt feels they are or have been: No Immunizations Up To Date Date of Influenza Vaccine: Sep 28, 2022 Tetanus Booster (TDap): Unknown Current Status status: No status: No Advance Directives: No Communicates: Verbally Primary Language: [place] Preferred Spoken Language: [place] Is interpretation needed?: No Sensory deficits: Vision impairment Implanted or Applied Medical D: None Past Medical History Surgeries: Appendectomy, Gallbladder, Orthopedic, Tonsillectomy Asthma, COPD Currently Using CPAP: No Currently Using BIPAP: No High Cholesterol 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 -ETOH--DENIES USE -DRUGS--THC USE PAST SURGICAL HISTORY: -HYSTERECTOMY/BILATERAL SALPINGO-OOPHORECTOMY -LAPAROSCOPIC CHOLECYSTECTOMY -SMALL BOWEL RESECTION -LYSIS OF ADHESIONS -LIVER BIOPSY -RIGHT ELBOW ULNAR NERVE TRANSPOSITION WITH MEDIAL EPICONDYLE RELEASE -RIGHT ELBOW TENNIS ELBOW RELEASE -RIGHT SHOULDER SCOPES X 2 -SINUS SURGERY -ERCP WITH GALLSTONE REMOVAL AND SPHINCTEROTOMY -MULTIPLE LEFT HAND SURGERIES SECONDARY TO TRAUMA. Review of Systems Constitutional: see HPI, malaise, weakness Cardiovascular: chest pain Physical Exam Physical Exam Vital Signs Vital Signs - First Documented 11/16/22 11/16/22 11/17/22 11:27 14:15 08:00 Temp 36.6 Pulse 66 Resp 18 B/P (MAP) 131/61 (84) Pulse Ox 98 O2 Delivery Room Air O2 Flow Rate 0.00 Capillary Refill : Less Than 3 Seconds Height, Weight, BMI Height: '" Weight: lbs. oz. kg; 27.89 BMI Method: General Appearance: No Apparent Distress, WD/WN Eyes: Bilateral Eye Normal Inspection, Bilateral Eye PERRL HEENT: PERRL/EOMI, TMs Normal, Normal ENT Inspection, Pharynx Normal Neck: Full Range of Motion, Normal Inspection, Non Tender, Supple, Carotid Bruit Respiratory: Chest Non Tender, Lungs Clear, Normal Breath Sounds, No Accessory Muscle Use, No Respiratory Distress Cardiovascular: Regular Rate, Rhythm, No Edema, No Gallop, No JVD, No Murmur, Normal Peripheral Pulses Gastrointestinal: Normal Bowel Sounds, No Organomegaly, No Pulsatile Mass, Non Tender, Soft Back: Normal Inspection, No CVA Tenderness, No Vertebral Tenderness Extremity: Normal Capillary Refill, Normal Inspection, Normal Range of Motion, Non Tender, No Calf Tenderness, No Pedal Edema Neurologic/Psychiatric: Alert, Oriented x3, No Motor/Sensory Deficits, dental officer II- XII Norm as Tested, Depressed Affect Skin: Normal Color, Warm/Dry Lymphatic: No Adenopathy Results Results/Procedures Labs Laboratory Tests 11/16/22 11:37 11/17/22 08:30 Patient resulted labs reviewed. Assessment/Plan Assessment and Plan Assess & Plan/Chief Complaint Assessment: Chest pain with normal cath Chronic dizziness- giving Meclizine and initiating PT Mental illness Plan: Monitor closely Meclizine DC home after PT MANPREET FERNANDEZ DO Nov 17, 2022 10:55
[2022-11-17] MEDS ORDERED: ALBUTEROL SULFATE IH PRN (11:00)
[2022-11-17] MEDS ORDERED: [UNRECOGNIZED DRUG - OTHER] IH PRN (11:00)
[2022-11-17] MEDS ORDERED: IPRATROPIUM IH PRN (11:00)
[2022-11-17] MEDS ORDERED: MECLIZINE 25 MG (ANTIVERT) TAB PO NR (11:00)
[2022-11-17] MEDS ORDERED: MECLIZINE 25 MG (ANTIVERT) TAB PO PRN (11:00)
[2022-11-17] MEDS ORDERED: NON-FORMULARY MEDICATION 1 EA EA (Alendronate Sodium 70 MG) PO SCH (11:00)
[2022-11-17 11:46] VITALS: BP 107/55
--- NOTE | 2022-11-17 11:48 | Physical Therapy Evaluation ---
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 4-Pobtmbikzw-ecqncsa completes the activity by him/herself with no assistance from a helper. 5-Set-up or Clean-up Assistance-helper sets up or cleans up; patient completes activity. Yantis assists only prior to or following the activity. 4-Supervision or Touching Assistance-helper provides verbal cues and/or touching/steadying and/or contact guard assistance as patient completes activity. Assistance may be provided throughout the activity or intermittently. 3-Partial/Moderate Assistance-helper does LESS THAN HALF the effort. Yantis li fts, holds or supports trunk or limbs, but provides less than half the effort. 2-Substantial/Maximal Assistance-helper does MORE THAN HALF the effort. Yantis lifts or holds trunk or limbs and provides more than half the effort. 3-Uwoghytvl-oenert does ALL the effort. Patient does none of the effort to complete the activity. Or, the assistance of 2 or more helpers is required for the patient to complete the activity. If activity was not attempted, code reason: 7-Patient Refused. 9-Not Applicable-not attempted and the patient did not perform the activity before the current illness, exacerbation or injury. 10-Not Attempted due to Environmental Limitations-(lack of equipment, weather restraints, etc.). 88-Not Attempted due to Medical Conditions or Safety Concerns. Bed Mobility: 6 Transfers (B,C,W/C): 6 Gait: 6 Stairs: 6 Indoor Mobility (Ambulation): Independent Stairs: Independent patient does report frequent falls PT Evaluation-Current Subjective Patient in bed pre tx, agrees to PT, has unrated low back pain. Pt/Family Goals to be independent at home Objective Patient Orientation: Person, Place, Situation Attachments: IV ROM/Strength ROM Lower Extremities WNL Strength Lower Extremities grossly 4/5 BLE Sensory Vision: Functional Hearing: Functional Sensation Right Lower Extremit: Intact Sensation Left Lower Extremity: Intact Transfers Roll Left to Right (QC): 4 Sit to Lying (QC): 4 Lying to Sitting/Side of Bed(Q: 4 Sit to Stand (QC): 4 SBA for supine to sit, CGA for sit to stand Gait Walk 10 feet (QC): 3 Walk 50 ft with 2 Turns(QC): 3 Walk 150 ft (QC): 3 Distance: 150' Gait Assistive Device: FWW Comments/Gait Description Gait was slow, had 3 LOB that required assist from therapist, tends to walk with eyes closed. Balance Sitting Static: Normal Sitting Dynamic: Normal Standing Static: Poor Standing Dynamic: Poor Treatment BLE supine exercises x20 (AP, HS) Assessment/Needs Patient in bed post tx with nurse call, phone, tray, all needs met. Patient has impaired mobility and balance. She had several LOB during ambulation with therapy and nurse reports LOB with them too. Rehab Potential: Fair PT Digital Marketing Coordinator Goals Prison Goals PT Digital Marketing Coordinator Goals Time Frame: Nov 24, 2022 Roll Left & Right (QC): 6 Sit to Lying (QC): 6 Lying-Sitting on Side/Bed(QC): 6 Sit to Stand (QC): 4 (SBA) Chair/Bpk-cl-Osing Xfer(QC): 4 (SBA) Walk 10 feet (QC): 4 (SBA) Walk 50ft with 2 Turns (QC): 4 (SBA) Walk 150 ft (QC): 4 (SBA) PT Plan Problem List Problem List: Activity Tolerance, Functional Strength, Safety, Balance, Gait, Transfer, Bed Mobility, ROM Treatment/Plan Treatment Plan: Continue Plan of Care Treatment Plan: Bed Mobility, Education, Functional Activity Gianna, Functional Strength, Gait, Safety, Therapeutic Exercise, Transfers Treatment Duration: Nov 24, 2022 Frequency: 6 times per week Estimated Hrs Per Day: .25 hour per day Patient and/or Family Agrees t: Yes Safety Risks/Education Patient Education: Gait Training, Transfer Techniques, Correct Positioning, Safety Issues Teaching Recipient: Patient Teaching Methods: Demonstration, Discussion Response to Teaching: Reinforcement Needed Discharge Recommendations Plan Patient will perform bed mobility and transfer training, balance and endurance training, functional strengthening, stair training, gait training, and education, to improve functional mobility and independence at home. Therapy Discharge Recommendati: Scheduled Assistance, Home & Family, Post Acute PT Time Time In: 1113 Time Out: 1125 DATE: Nov 17, 2022 Total Billed Treatment Time: 12 Total Billed Treatment 1 visit ТАТЬЯНА YEUNG PT Nov 17, 2022 11:48
[2022-11-17] MEDS ORDERED: GABAPENTIN 600 MG (NEURONTIN) TAB PO SCH (13:00)
[2022-11-17] MEDS ORDERED: CYCL10TA25 PO (15:14)
[2022-11-17 16:00] VITALS: BP 130/69
--- NOTE | 2022-11-17 20:08 | Progress Note - Cardiology ---
Cardiology SOAP Progress Note Subjective: Chronic intermittent chest pain: mild to mod burning brought about by some food and meds, lasting up to an hour, unchanged, one or two such bouts since in the hosp R groin pain after cath, much improved Chronic dizziness Chronic tiredness and daytime somnolence No n/v/d Chronic, exertional shortness of breath, unchanged Objective: I&O/Vital Signs 11/17/22 11/17/22 11/17/22 11/17/22 11:46 12:22 13:50 16:00 Temp 36.0 36.4 Pulse 65 66 69 Resp 19 18 B/P (MAP) 107/55 (72) 130/69 (89) Pulse Ox 95 95 98 O2 Delivery Room Air Room Air O2 Flow Rate 0.00 0.00 11/17/22 00:00 Intake Total 1266 ml Output Total 0 ml Balance 1266 ml Side: right Groin site without hematoma: Yes Condition: DP/PT pulses palpable, extremity w/d/p Bruising: mild bruising Constitutional: AAO x 3, well-developed Respiratory: No accessory muscle use, No respiratory distress; chest expansion is symmetric, chest is bilaterally symmetric, lungs clear to auscultation Cardiovascular: regular rate-rhythm; No JVD; S1 and S2 Gastrointestional: No tender; soft, round; No tenderness; audible bowel sounds, other (no RLQ or other abdominal tenderness or guarding) Neurologic/Psychiatric: oriented x 3, other (moves all limbs equally) Skin: normal color, warm/dry; No cyanosis, No cool, No diaphoresis, No rash on exposed areas, No ulcerations on exposed areas Results/Procedures: Labs Laboratory Tests 11/17/22 08:30: White Blood Count 8.1, Red Blood Count 3.55L, Hemoglobin 10.7#L, Hematocrit 33L, Mean Corpuscular Volume 94, Mean Corpuscular Hemoglobin 30, Mean Corpuscular Hemoglobin Concent 32, Red Cell Distribution Width 13.5, Platelet Count 192, Mean Platelet Volume 10.5, Sodium Level 140, Potassium Level 3.7, Chloride Level 112H, Carbon Dioxide Level 20L, Anion Gap 8, Blood Urea Nitrogen 9, Creatinine 0.71, Estimat Glomerular Filtration Rate 94, BUN/Creatinine Ratio 13, Glucose Level 163H, Calcium Level 8.1L, Corrected Calcium 8.7, Total Bilirubin 0.4, Aspartate Amino Transf (AST/SGOT) 170H, Alanine Aminotransferase (ALT/SGPT) 424H , Alkaline Phosphatase 130, Total Protein 5.5L, Albumin 3.2 Microbiology 11/16/22 MRSA Screen - Final, Complete MRSA not isolated Laboratory Tests 11/16/22 11:37 11/17/22 08:30 A/P: Assessment: Non-cardiac dizziness of undetermined etiology - [facility] following Elevated liver enzymes of undetermined etiology - [facility] following CAD - Cardiac cath of 11-16-22: Mild coronary artery disease. Normal global left ventricular systolic function with ejection fraction approximately 55-60%. Left ventricular end-diastolic pressure 15 mmHg. R groin pain post-cath - no evidence of hematoma or other complications - groin u/s on 11/17/22 is unremarkable Quit smoking in May 2022 HLD HTN Family h/o premature CAD (mother had [place] at age 60) PTSD Bi-polar disorder Chronic pain syndrome Recent falls due to dizziness (no syncope) Temporal artery biopsy by Dr Messina in [place], [place] on Nov 08, 2022 (results awaited) Plan: Chronic dizziness of undetermined etiology (non-cardiac) - We consulted Dr Day who is covering the [facility] service and Dr Day has allowed d/c Elevated liver enzymes of undetermined etiology, chronic - We consulted Dr Day who is covering the [facility] service and Dr Day has allowed d/c No significant CAD on cath of 11/16/22. D/c Toprol XL to avoid hypotension Risk factor mod reviewed in detail with her. Advised to continue to refrain from smoking Advised outpt f/u UMBERTO ACUNA MD FACP FAC CCDS Nov 17, 2022 20:08
[2022-11-17] MEDS ORDERED: NON-FORMULARY MEDICATION 1 EA EA (Fluoxetine HCl (Prozac) 40 MG) PO SCH (21:00)
[2022-11-17] MEDS ORDERED: ASPIRIN 81 MG CHEW (CHILDREN'S ASA) PO SCH (21:00)
[2022-11-17] MEDS ORDERED: PRAZOSIN HCL MC SCH (21:00)
[2022-11-17] MEDS ORDERED: traZODone 100 MG (DESYREL) TAB PO SCH (21:00)
[2022-11-18] MEDS ORDERED: VITAMIN D3 25 MCG (1,000 UNITS) TABLET PO SCH (09:00)
[2022-11-18] MEDS ORDERED: ROSUVASTATIN CALCIUM 40 MG PO SCH (09:00)
[2022-11-18] MEDS ORDERED: NON-FORMULARY MEDICATION 1 EA EA (Aripiprazole (Abilify) 5 MG) PO SCH (09:00)
[2022-11-18] MEDS ORDERED: MULTIVIT W/MINERALS TAB (THERAGRAN M) PO SCH (09:00)
== END 2022-11-17 16:13 | disposition home or self-care (01) ==
LOC: CATH 10:54 → SDC 14:13 → CSD 18:37 → CATH 11-17 16:13
PROVIDERS: ATTEND Internal Medicine Cardiovascular Disease
DX: I25.10 Atherosclerotic heart disease of native coronary artery without angina pectoris (principal); E78.5 Hyperlipidemia, unspecified; I10 Essential (primary) hypertension; F43.10 Post-traumatic stress disorder, unspecified; F31.9 Bipolar disorder, unspecified; G89.4 Chronic pain syndrome; R42 Dizziness and giddiness; R94.5 Abnormal results of liver function studies; Z87.891 Personal history of nicotine dependence
CPT/HCPCS: 80053 ×2; 80061; 85027 ×2; 85610; 85730; 87081; 93005; 93458; 93926; C1894; 36415

== ENCOUNTER → 2022-12-22 | Outpatient (CLI) | payer MEDICARE, OTHER ==
[~2022-12-22] MED LIST changes: +ALEN70TA80 PO; +ARIP5TAB12 PO; +CYCL10TA25 PO; +FLUO40CA12 PO; +GADOTERATE 0.5 MMOL/ML (CLARISCAN) 20 ML VIAL IV ONE; +GBPN600T PO; +MTP25TSR PO; +PRAZ1POW3 MC; +ROSU40TA PO; +TRAZ-227 PO; +TRM50T PO
--- NOTE | 2022-12-22 10:25 | Diagnostic Imaging Report ---
PROCEDURE: MRI lumbar spine with and without contrast. TECHNIQUE: Multiplanar, multisequence MRI of the lumbar spine was performed with and without contrast. INDICATION: Chronic low back pain. Radiculopathy to both legs. COMPARISON: 04/04/2022. FINDINGS: 5 lumbar type vertebral bodies are visualized with the last well-formed disc space designated L5-S1. No acute fracture or dislocation is seen in the lumbar spine. Alignment is anatomic. Vertebral body heights and disc spaces are well-maintained. The bone marrow signal is normal. No abnormal enhancement is visualized. The conus terminates at the L1 level. No masses are seen associated with the conus or nerve roots of the cauda equina. No epidural collections are identified. Multilevel degenerative changes are seen in the lumbar spine with disc bulges, facet hypertrophy, and buckling of the ligamentum flavum. T12-L1: No significant spinal canal or foraminal stenosis. L1-L2: No significant spinal canal or foraminal stenosis. L2-L3: No significant spinal canal or foraminal stenosis. L3-L4: Facet hypertrophy and buckling of ligamentum flavum results in mild spinal canal narrowing and mild bilateral foraminal narrowing. L4-L5: Broad-based disc bulge, facet hypertrophy, and buckling of the ligamentum flavum results in mild to moderate spinal canal narrowing and mild bilateral foraminal narrowing. L5-S1: Broad-based disc bulge, facet hypertrophy, and buckling of the ligamentum flavum results in mild spinal canal narrowing and mild to moderate right and moderate left foraminal stenosis. Paravertebral soft tissues are unremarkable. IMPRESSION: 1. No acute fracture or dislocation in the lumbar spine. No abnormal enhancement. 2. Multilevel degenerative changes in the lumbar spine, greatest at L4-L5 and L5-S1. Dictated by: Dictated on workstation # [id number]
== END ==
LOC: RAD 07:25
PROVIDERS: ATTEND Pediatrics
DX: M47.816 Spondylosis without myelopathy or radiculopathy, lumbar region (principal); M47.817 Spondylosis without myelopathy or radiculopathy, lumbosacral region
CPT/HCPCS: 72158

== ENCOUNTER → 2023-01-25 | Outpatient (CLI) | payer MEDICARE, OTHER ==
[~2023-01-25] MED LIST changes: -GADOTERATE 0.5 MMOL/ML (CLARISCAN) 20 ML VIAL IV ONE
--- NOTE | 2023-01-25 11:16 | Diagnostic Imaging Report ---
INDICATION: Postmenopausal state. COMPARISON: 01/06/2021. FINDINGS: AP Spine L1-L4: [BMD (g/cm2): 0.969] [T-Score: -1.9] [Z-Score: -0.4] [BMD Previous: 0.845] [BMD % Change: 14.7*] LT Hip Neck: [BMD (g/cm2): 0.744] [T-Score: -2.1] [Z-Score: -0.7] LT Hip Total: [BMD (g/cm2):0.851] [T-Score:-1.2] [Z-Score: -0.1] [BMD Previous: 0.815] [BMD % Change: 4.4*] RT Hip Neck: [BMD (g/cm2):0.810] [T-Score:-1.6] [Z-Score:-0.2] RT Hip Total: [BMD (g/cm2):0.848] [T-score:-1.3] [Z-Score:-0.1] [BMD Previous:0.810] [BMD % Change:4.7*] *Indicates significant change from prior examination based on 95% confidence level. World Health Organization criteria for BMD interpretation classify patients as Normal (T-score at or above -1.0), Osteopenic (T-score between -1.0 and -2.5) or Osteoporotic (T-score at or below -2.5). LIMITATIONS AND MODIFICATION: None. FRACTURE RISK (FRAX SCORE): FRAX score is not calculated as the patient has been treated for osseous demineralization. IMPRESSION: 1. Osteopenia (Low bone mass). 2. Bone mineral density within the hips and lumbar spine has significantly increased since the prior examination. 3. See below National Osteoporosis Foundation guidelines on when to potentially initiate pharmacologic therapy. Based on the National Osteoporosis Foundation Guidelines, pharmacologic treatment should be initiated in any of the following, unless clinical conditions suggest otherwise: * Any patient with prior fragility fracture of the hip or vertebrae. A spine fracture indicates 5X risk for subsequent spine fracture and 2X risk for subsequent hip fracture. * Osteoporosis (T-score <-2.5). * Postmenopausal women and men age 50 and older with low bone mass/osteopenia (T-score between -1.0 and -2.5) by DXA and 10-year major osteoporotic fracture greater than 20% or a 10-year probability of hip fracture greater than 3%. These fracture risks are supplied above in the FRAX score, if applicable. * Clinician judgement and/or patient preferences may indicate treatment for people with 10-year fracture probabilities above or below these levels. Dictated by: Dictated on workstation # [id number]
== END ==
LOC: RAD 09:00
PROVIDERS: ATTEND Pediatrics
DX: M85.89 Other specified disorders of bone density and structure, multiple sites (principal)
CPT/HCPCS: 77080